=== PATIENT | female | born 1995 | race Caucasian/White ===

== ENCOUNTER 2018-05-27 20:43 | Observation (INO) | payer OTHER ==
[2018-05-27 21:07] LABS: BASOPHILS # (AUTO) 0.1 10^3/uL (0.0-0.1); BASOPHILS % (AUTO) 0.4 %; EOSINOPHILS % (AUTO) 0.1 %; HGB - HEMOGLOBIN 12.9 g/dL (12.0-16.0); LYMPHOCYTES # (AUTO) 1.6 10^3/uL (1.5-3.5); LYMPHOCYTES % (AUTO) 11.7 %; MEAN CORPUSCULAR HEMOGLOBIN 27.4 pg (27.0-31.0); MEAN CORPUSCULAR HGB CONC 32.8 g/dL (32.0-36.0); MEAN CORPUSCULAR VOLUME 83.6 fL (81.0-99.0); MEAN PLATELET VOLUME 7.6 fL (7.9-10.8); MONOCYTES % (AUTO) 7.4 %; NEUTROPHILS # (AUTO) 11.3 10^3/uL (1.5-6.6); NEUTROPHILS % (AUTO) 80.4 %; PLT - PLATELET COUNT 243 10^3/uL (130-450); RED CELL DISTRIBUTION WIDTH 13.9 % (12.0-15.0); WHITE BLOOD COUNT 14.1 x10^3/uL (4.8-10.8)
[2018-05-27 21:20] LABS: ALBUMIN 4.7 g/dL (3.2-5.5); ALBUMIN/GLOBULIN RATIO 1.3 (1.0-2.2); BILIRUBIN,TOTAL 0.4 mg/dL (0.2-1.0); CALCIUM 9.4 mg/dL (8.5-10.3); CREATININE 0.7 mg/dL (0.4-1.0); TOTAL PROTEIN 8.2 g/dL (6.7-8.2)
[2018-05-27] MEDS ORDERED: ONDANSETRON 4 MG/2 ML VIAL IVP STA (21:28)
[2018-05-27] MEDS ORDERED: SODIUM CHLORIDE 0.9% 1,000 ML IV ONE ×2 (21:28)
[2018-05-27] MEDS ORDERED: HYDROmorphone 1 MG/ML CARPUJECT IVP STA ×2 (21:28→22:53)
--- NOTE | 2018-05-27 21:41 | ED Physician Documentation ---
PD HPI ABD PAIN - Stated complaint Stated Complaint: L SIDE/BACK PX - Chief complaint Chief Complaint: Abd Pain - History obtained from History obtained from: Patient, Family - History of Present Illness Timing - onset: Today Timing - duration: Days (1) Timing - details: Abrupt onset Pain level max: 10 Pain level now: 10 Quality: Pain Location: All over / everywhere Radiation: No: Chest, , Lower back, Left flank, Left shoulder, Right flank, Right shoulder, Upper back Improved by: Laying still Worsened by: Moving, Palpation Associated symptoms: No: Fever, Nausea, Vomiting, Hematemesis, Diarrhea, Constipation, Melena, Hematochezia, Dysuria, Near syncope / syncope, Loss of appetite, Weight loss, Vaginal bleeding, Vaginal dc, Other Similar symptoms before: Diagnosis (r ovarian cyst) Recently seen: Other (SIMIN x 3 for abd pain in last month. Pt on nexplanon) Review of Systems Ten Systems: 10 systems reviewed and negative Constitutional: denies: Fever, Chills Nose: denies: Rhinorrhea / runny nose, Congestion Cardiac: denies: Chest pain / pressure Respiratory: denies: Dyspnea, Cough, Wheezing : denies: Dysuria Skin: denies: Rash Musculoskeletal: denies: Neck pain, Back pain Neurologic: denies: Headache PD PAST MEDICAL HISTORY - Past Medical History Past Medical History: No - Past Surgical History Past Surgical History: No - Allergies Allergies/Adverse Reactions: Allergies Allergy/AdvReac Type Severity Reaction Status Date / Time No Known Drug Allergies Allergy Verified 05/27/18 20:51 - Living Situation Living Situation: reports: With family Living Arrangement: reports: At home - Social History Does the pt smoke?: No Does the pt have substance abuse?: No - Family History Family history: reports: Non contributory PD ED PE NORMAL - Vitals Vital signs reviewed: Yes - General General: Alert and oriented X 3, Other (Appears in pain) - HEENT HEENT: PERRL, Moist mucous membranes - Neck Neck: Supple, no meningeal sign - Cardiac Cardiac: RRR - Respiratory Respiratory: Clear bilaterally - Abdomen Abdomen: Soft, Non distended, Other (Diffusely tender to palpation. Positive guarding and rebound) - Female Female : Other (Moderate thick white discharge, also a small 1 cm area to the cervix that is erythematous in nature, this is at the 12 o'clock position. Positive cervical motion tenderness. Positive right adnexal tenderness. Positive chandelier sign) - Back Back: No spinal TTP - Derm Derm: Warm and dry - Extremities Extremities: No edema, No calf tenderness / cord - Neuro Neuro: Alert and oriented X 3 - Psych Psych: Normal mood, Normal affect Results - Vitals Vitals: Vital Signs - 24 hr 05/27/18 05/27/18 05/27/18 20:47 21:49 22:46 Temperature 37.0 C 38.6 C H Heart Rate 87 100 109 H Respiratory 18 18 16 Rate Blood Pressure 127/80 115/77 108/79 O2 Saturation 97 96 100 05/27/18 05/28/18 05/28/18 23:46 01:04 01:11 Temperature 37.1 C Heart Rate 97 92 Respiratory 17 18 Rate Blood Pressure 112/60 114/75 O2 Saturation 100 98 Oxygen O2 Source Room air - Labs Labs: Microbiology 05/28/18 01:01 Wet Prep - Final Vaginal Laboratory Tests 05/27/18 05/27/18 05/27/18 21:01 21:01 22:47 WBC 14.1 H RBC 4.70 Hgb 12.9 Hct 39.3 MCV 83.6 MCH 27.4 MCHC 32.8 RDW 13.9 Plt Count 243 MPV 7.6 L Neut # (Auto) 11.3 H Lymph # (Auto) 1.6 [place] # (Auto) 1.0 Eos # (Auto) 0.0 Baso # (Auto) 0.1 Absolute Nucleated RBC 0.00 Nucleated RBC % 0.0 Sodium 139 Potassium 3.6 Chloride 105 Carbon Dioxide 25 Anion Gap 9.0 BUN 14 Creatinine 0.7 Estimated GFR (MDRD) 106 Glucose 97 Calcium 9.4 Total Bilirubin 0.4 AST 20 ALT 14 Alkaline Phosphatase 41 L Total Protein 8.2 Albumin 4.7 Globulin 3.5 Albumin/Globulin Ratio 1.3 Lipase 34 Urine Color YELLOW Urine Clarity CLEAR Urine pH 7.5 Ur Specific [place] 1.015 Urine Protein NEGATIVE Urine Glucose (UA) NEGATIVE Urine Ketones 15 H Urine Occult Blood NEGATIVE Urine Nitrite NEGATIVE Urine Bilirubin NEGATIVE Urine Urobilinogen 0.2 (NORMAL) Ur Leukocyte Esterase NEGATIVE Ur Microscopic Review NOT INDICATED Urine Culture Comments NOT INDICATED Urine HCG, Qual NEGATIVE - Rads (name of study) CT abd/pelvis Radiology: Prelim report reviewed, EMP read contemporaneously, See rad report (Normal abdomen pelvis CT.) Pelvic ultrasound Radiology: Prelim report reviewed, EMP read contemporaneously, See rad report (No acute abnormality) PD MEDICAL DECISION MAKING - ED course Complexity details: reviewed results, re-evaluated patient, considered differential, d/w patient, d/w family, d/w senior research consultant ED course: 23-year-old female presents to the emergency department with leukocytosis, fever, right pelvic pain now with right upper quadrant pain as well. Possible Binu-Dwight Esequiel syndrome? Likely PID. Given cefoxitin and doxycycline. Discussed the case with Dr. Huizar, gynecology who accepts for observation. Pain is difficult to control in the emergency department and she did receive several doses of IV narcotics. Patient states that she has had chlamydia in the past. Denies any symptoms currently This document was made in part using voice recognition software. While efforts are made to proofread this document, sound alike and grammatical errors may occur. Departure - Departure Disposition: ED Place in Observation Clinical Impression: PID (acute pelvic inflammatory disease), Ewyt-[id number]-Mxzmuv syndrome Condition: Stable
[2018-05-27] MEDS ORDERED: IOPAMIDOL-300 100 ML VIAL ONE (21:43)
[2018-05-27] MEDS ORDERED: IOPAMIDOL-300 100 ML VIAL IVP ONE (22:25)
[2018-05-27 22:52] LABS: BILIRUBIN,URINE NEGATIVE (NEGATIVE); GLUCOSE, URINE (UA) NEGATIVE (NEGATIVE); KETONES,URINE (UA) 15 mg/dL (NEGATIVE); LEUKOCYTE ESTERASE, URINE NEGATIVE (NEGATIVE); NITRITE,URINE NEGATIVE (NEGATIVE); OCCULT BLOOD,URINE NEGATIVE (NEGATIVE); PH,URINE 7.5 PH (5.0-7.5); PROTEIN,URINE NEGATIVE (NEGATIVE); UROBILINOGEN,URINE 0.2 (NORMAL) E.U./dL (NORMAL)
--- NOTE | 2018-05-27 22:56 | CT Report ---
Reason: RLQ pain, now diffuse Procedure Date: 05/27/2018 Accession Number: [id number] / [id number] Procedure: CT - Abdomen/Pelvis W CPT Code: FULL RESULT: EXAM: CT ABDOMEN AND PELVIS EXAM DATE: 05/27/2018 10:26 PM. CLINICAL HISTORY: Abdomen pain, initially right lower quadrant, now diffuse. COMPARISONS: None. TECHNIQUE: Routine helical CT imaging was performed through the abdomen and pelvis. IV contrast: 100 cc of Isovue-300. Enteric contrast: No. Reconstructions: Coronal and sagittal. In accordance with CT protocol optimization, one or more of the following dose reduction techniques were utilized for this exam: automated exposure control, adjustment of mA and/or KV based on patient size, or use of iterative reconstructive technique. FINDINGS: Lung Bases: Unremarkable. Liver: Normal. No masses. Gallbladder/Bile Ducts: Unremarkable. Spleen: Normal. Pancreas: Normal. Adrenal Glands: Normal. Kidneys: Normal. No masses or hydronephrosis. Peritoneal Cavity/Bowel: Normal. No free fluid, free air or adenopathy. No masses or acute inflammatory process. The appendix is well visualized and normal. Pelvic Organs: Normal. The bladder and visualized pelvic organs are within normal limits. Vasculature: No aneurysms or other significant abnormality. Bones: No significant abnormality. Other: None. IMPRESSION: Normal abdomen and pelvis CT. RADIA
[2018-05-27 22:58] LABS: CLARITY,URINE CLEAR (CLEAR); HCG UR QUAL NEGATIVE
[2018-05-27] MEDS ORDERED: ACETAMINOPHEN 325 MG TABLET PO STA (23:36)
[2018-05-28] MEDS ORDERED: KETOROLAC 30 MG/ML VIAL IVP STA (01:01)
[2018-05-28] MEDS ORDERED: cefOXitin 2 GM in SODIUM CHLORIDE 0.9% MINIBAG 100 ML IV STA (01:09)
[2018-05-28] MEDS ORDERED: DOXYCYCLINE 100 MG TABLET PO STA (01:09)
[2018-05-28] MEDS ORDERED: HYDROmorphone 1 MG/ML CARPUJECT IVP STA (01:14)
[2018-05-28] MEDS ORDERED: KETOROLAC 30 MG/ML VIAL IVP PRN (01:26)
[2018-05-28] MEDS ORDERED: oxyCODONE 5 MG TABLET PO PRN ×2 (01:37→07:22)
[2018-05-28] MEDS ORDERED: ceFAZolin 2 GM/50 ML 2 GM/50 ML BAG IV SCH (01:45)
[2018-05-28] MEDS ORDERED: cefOXitin 2 GM in SODIUM CHLORIDE 0.9% MINIBAG 100 ML IV SCH (02:00)
[2018-05-28] MEDS ORDERED: DOXYCYCLINE 100 MG TABLET PO SCH ×2 (02:00→13:00)
[2018-05-28] MEDS ORDERED: ACETAMINOPHEN 325 MG TABLET PO SCH (02:00)
[2018-05-28] MEDS ORDERED: SODIUM CHLORIDE 0.9% 1,000 ML IV SCH (02:00)
--- NOTE | 2018-05-28 02:05 | Ultrasound Report ---
Reason: pelvic pain, R Procedure Date: 05/27/2018 Accession Number: [id number] / [id number] Procedure: US - Pelvic w/Transvag+Doppler Comp CPT Code: FULL RESULT: EXAM: PELVIC ULTRASOUND EXAM DATE: 05/27/2018 11:59 PM. CLINICAL HISTORY: Pelvic pain, right. COMPARISON: ABDOMEN/PELVIS W/ 05/27/2018 10:14 PM. TECHNIQUE: Real-time transabdominal pelvic scan performed to identify the uterus and adnexa and as an overview of other pelvic structures, followed by transvaginal scan to provide greater detail of the uterus and adnexa, with static image documentation. FINDINGS: Uterus: 6.7 x 3.6 x 3.9 cm, volume 50.2 cc. Anteverted position. Normal overall size and echotexture. Masses: None. Endometrium: 4 mm. Normal. Cervix: Unremarkable. Right Ovary: 4.2 x 1.7 x 2.1 cm, volume 7.9 cc. Normal echotexture and blood flow. Left Ovary: 3.7 x 1.5 x 1.7 cm, volume 5.1 cc. Normal echotexture and blood flow. Free Fluid: None. Other: None. IMPRESSION: Normal pelvic ultrasound. RADIA
[2018-05-28] MEDS: MORPHINE 2 MG/ML SYRINGE IVP PRN ×3 (03:11→16:59)
[2018-05-28] MEDS: ONDANSETRON 4 MG/2 ML VIAL IVP PRN ×2 (07:46→16:59)
[2018-05-28] MEDS ORDERED: metroNIDAZOLE 500 MG/100 ML 500 MG/100 ML BAG IV SCH (08:00)
[2018-05-28] MEDS: KETOROLAC 30 MG/ML VIAL IVP SCH ×2 (08:04→12:27)
[2018-05-28] MEDS ORDERED: D5.45NS W/20 MEQ KCL 1,000 ML IV STA (08:31)
[2018-05-28] MEDS ORDERED: LACTATED RINGERS 500 ML IV ONE (08:32)
[2018-05-28] MEDS: cefOXitin 2 GM in SODIUM CHLORIDE 0.9% MINIBAG 100 ML IV SCH ×2 (09:20→15:06)
--- NOTE | 2018-05-28 10:15 | HISTORY & PHYSICAL EXAMINATION ---
DATE OF SERVICE: 05/28/2018 Physician: Suma Huizar MD CHIEF COMPLAINT: Left abdominal pain. HISTORY OF PRESENT ILLNESS: Patient felt a little bit weird yesterday, just felt like she did not fe el great. She had gone on a [address] and she wondered if it was related to that. She had had so me intermittent mild background left lower quadrant pain for which she sought care at [facility]. They deemed this to be secondary to a hormone imbalance. They tried control pills for a week a nd this caused breast pain and galactorrhea, and so the medications were stopped [address] was that she was going to have her Nexplanon removed today to see if that would improve her sympto ms. This evening, she had laid her son down to bed, stood up and then felt a sudden severe shooting pain in the left lower quadrant that was 8/10 in intensity with a very abrupt onset. She had to breathe t hrough the pain like a contraction. The pain persisted. It did not improve with time. The pain spr ead to the right lower quadrant and then up to the right upper quadrant. It has been associated with a feeling of dizziness and nausea. Nothing seems to make it better except for IV narcotics in the e mergency room. She has never had pain like this before. REVIEW OF SYSTEMS: The patient felt feverish and chilled in the ER, but not prior to arrival to the hospital. No cough, no wheeze. No shortness of breath. No dysuria. No change in bowel movements. No headaches. The patient has experienced intermittent galactorrhea. PAST MEDICAL HISTORY: Hypoglycemia and migraine headaches without aura. PAST SURGICAL HISTORY: Negative. ALLERGIES: NO KNOWN DRUG ALLERGIES. MEDICATIONS: None. SOCIAL HISTORY: No tobacco, alcohol or drug use. 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 She lives wi th her child and her at home. FAMILY HISTORY: Remarkable for Goodpasture syndrome in her mother. OBSTETRICAL HISTORY: The patient delivered about 20 months ago. It was an uncomplicated a nd delivery. She has weaned for quite some time and has had bouts of galactorrhea since then. OBJECTIVE VITAL SIGNS: In the ER, temperature 38.6, heart rate 109, respiratory rate 16, blood pressure 108/79 . GENERAL: She is currently alert and appears to be uncomfortable with nausea. Otherwise, she is in n o apparent distress. ABDOMEN: Very tender in the bilateral lower quadrants. There is moderate tenderness in the upper qu adrants. There is no rebound present in the upper quadrants. There is no voluntary guarding present . There is no abdominal rigidity present. LABORATORY DATA: White count was 14.1 with a left shift present hematocrit 39.3. CMP was normal. U A was negative. HCG negative. STUDIES: CT of the abdomen and pelvis was normal. Pelvic ultrasound was normal as well. IMPRESSION AND PLAN: A 23-year-old with an acute onset of severe left lower quadrant pain, who has p elvic inflammatory disease. On her examination, she was found to have a significant amount of mucopu rulent discharge from the cervix as well as cervical motion tenderness. The abrupt onset of her pain is uncommon and the differential would include acute hemorrhagic ovarian cyst, but none of this was seen on the ultrasound. Nephrolithiasis is also a possibility, but her UA was normal and the locatio n of her pain is not consistent with this. Admit for pain control as well as for IV antibiotics with a severe case of pelvic inflammatory diseas e without evidence of tubo-ovarian abscess. In the ER, she got 2 grams of cefoxitin and 100 mg of do xycycline. Today, she is feeling better with a pain level of 4/10, but she has been receiving IV zackary cotics. We will treat her current nausea with Zofran and attempt to transition her to oral antibioti cs and pain medicines today. If this is not possible, then she will stay inpatient for a little bit longer. Continue cefoxitin 2 grams IV q.6 hours, doxycycline 100 mg b.i.d. We will add metronidazol e 500 mg IV q.8 hours due to the severity of her pelvic inflammatory disease. Gonorrhea and chlamydi a cultures are pending. The patient was concerned that she might have Goodpasture syndrome like her mother did. I have reassured her that her kidneys look normal and she has no pulmonary symptoms and so Goodpasture's is very unlikely in this setting. Symptomatic hypoglycemia: The patient feels the same way she feels whenever she becomes hypoglycemic . We will change her IV fluids to D5 LR and will bolus her with normal saline now. The patient was advised to drink juice instead of eating Jell-O as it might help to maintain her blood sugars better. TD: 05/28/2018 09:13
[2018-05-28] MEDS ORDERED: DOXYCYCLINE INJ 100 MG in SODIUM CHLORIDE 0.9% MINIBAG 100 ML IV SCH (13:20)
--- NOTE | 2018-05-28 13:22 | PROVIDER PROGRESS NOTE ---
Subjective - Subjective Subjective: S: feeling better overall. Less nausea and no further emesis. Able to tolerate some juice and one cracker. Able to get OOB to a bedside chair. Urinating OK. Pain is less than before. O: AVSS, no fevers Alert, smiling, supine in bed, NAD A/P: 23yo with PID without evidence of TOA, admitted for pain control. Doing well on IV meds, will transition to po meds in hopes of discharge later today. 1) stop toradol and start ibuprofen 2) stop IV doxy and metronidazole and start po 3) continue cefoxitine IV until discharge 4) Leave morpine for breakthrough pain but encouraged use of po narcotics instead. 5) Change to regular diet with unlikely to need to go to the OR 6) saline lock IVs About 15min after I departed, the patient complained of 7/10 intensity chest pa in while the doxycycline IV was still infusing. The doxy infusion was stopped. Pt appears in no distress to RN. EKG ordered. Pt is a young, thin, healthy woman with negative PMH. I checked out care to Dr. Tejeda director of undergraduate admissions [employer] for ongoing mgmt. Objective - Vital Signs/Intake & Output Vital Signs: Vital Signs x48h Temp Pulse Resp BP BP Pulse Ox 05/28/18 11:00 97.7 F 62 16 91/59 L 99 05/28/18 09:00 98.4 F 72 18 102/52 L 99 05/28/18 06:59 97.7 F 77 16 98/59 L 97 Intake & Output: Intake & Output 05/25/18 05/26/18 05/27/18 05/28/18 23:59 23:59 23:59 23:59 Intake Total 1000 2790 Output Total 250 Balance 1000 2540 - Lab Results Fish Bones: 05/27/18 21:01 05/27/18 21:01 Other Labs: Lab Results x24hrs 05/28/18 05/27/18 05/27/18 Range/Units 06:16 22:47 21:01 WBC (4.8-10.8) x10^3/uL RBC (4.20-5.40) 10^6/uL Hgb (12.0-16.0) g/dL Hct (37.0-47.0) % MCV (81.0-99.0) fL MCH (27.0-31.0) pg MCHC (32.0-36.0) g/dL RDW (12.0-15.0) % Plt Count (130-450) 10^3/uL MPV (7.9-10.8) fL Neut # (Auto) (1.5-6.6) 10^3/uL Lymph # (Auto) (1.5-3.5) 10^3/uL [place] # (Auto) (0.0-1.0) 10^3/uL Eos # (Auto) (0.0-0.7) 10^3/uL Baso # (Auto) (0.0-0.1) 10^3/uL Absolute Nucleated RBC x10^3/uL Nucleated RBC % /100WBC Sodium 139 (135-145) mmol/L Potassium 3.6 (3.5-5.0) mmol/L Chloride 105 (101-111) mmol/L Carbon Dioxide 25 (21-32) mmol/L Anion Gap 9.0 (6-13) BUN 14 (6-20) mg/dL Creatinine 0.7 (0.4-1.0) mg/dL Estimated GFR (MDRD) 106 (>89) Glucose 97 (70-100) mg/dL POC Whole Bld Glucose 108 H (70 - 100) mg/dL Calcium 9.4 (8.5-10.3) mg/dL Total Bilirubin 0.4 (0.2-1.0) mg/dL AST 20 (10-42) IU/L ALT 14 (10-60) IU/L Alkaline Phosphatase 41 L (42-121) IU/L Total Protein 8.2 (6.7-8.2) g/dL Albumin 4.7 (3.2-5.5) g/dL Globulin 3.5 (2.1-4.2) g/dL Albumin/Globulin Ratio 1.3 (1.0-2.2) Lipase 34 (22-51) U/L Urine Color YELLOW Urine Clarity CLEAR (CLEAR) Urine pH 7.5 (5.0-7.5) PH Ur Specific [place] 1.015 (1.002-1.030) Urine Protein NEGATIVE (NEGATIVE) mg/dL Urine Glucose (UA) NEGATIVE (NEGATIVE) mg/dL Urine Ketones 15 H (NEGATIVE) mg/dL Urine Occult Blood NEGATIVE (NEGATIVE) Urine Nitrite NEGATIVE (NEGATIVE) Urine Bilirubin NEGATIVE (NEGATIVE) Urine Urobilinogen 0.2 (NORMAL) (NORMAL) E.U./dL Ur Leukocyte Esterase NEGATIVE (NEGATIVE) Ur Microscopic Review NOT INDICATED Urine Culture Comments NOT INDICATED Urine HCG, Qual NEGATIVE 05/27/18 Range/Units 21:01 WBC 14.1 H (4.8-10.8) x10^3/uL RBC 4.70 (4.20-5.40) 10^6/uL Hgb 12.9 (12.0-16.0) g/dL Hct 39.3 (37.0-47.0) % MCV 83.6 (81.0-99.0) fL MCH 27.4 (27.0-31.0) pg MCHC 32.8 (32.0-36.0) g/dL RDW 13.9 (12.0-15.0) % Plt Count 243 (130-450) 10^3/uL MPV 7.6 L (7.9-10.8) fL Neut # (Auto) 11.3 H (1.5-6.6) 10^3/uL Lymph # (Auto) 1.6 (1.5-3.5) 10^3/uL [place] # (Auto) 1.0 (0.0-1.0) 10^3/uL Eos # (Auto) 0.0 (0.0-0.7) 10^3/uL Baso # (Auto) 0.1 (0.0-0.1) 10^3/uL Absolute Nucleated RBC 0.00 x10^3/uL Nucleated RBC % 0.0 /100WBC Sodium (135-145) mmol/L Potassium (3.5-5.0) mmol/L Chloride (101-111) mmol/L Carbon Dioxide (21-32) mmol/L Anion Gap (6-13) BUN (6-20) mg/dL Creatinine (0.4-1.0) mg/dL Estimated GFR (MDRD) (>89) Glucose (70-100) mg/dL POC Whole Bld Glucose (70 - 100) mg/dL Calcium (8.5-10.3) mg/dL Total Bilirubin (0.2-1.0) mg/dL AST (10-42) IU/L ALT (10-60) IU/L Alkaline Phosphatase (42-121) IU/L Total Protein (6.7-8.2) g/dL Albumin (3.2-5.5) g/dL Globulin (2.1-4.2) g/dL Albumin/Globulin Ratio (1.0-2.2) Lipase (22-51) U/L Urine Color Urine Clarity (CLEAR) Urine pH (5.0-7.5) PH Ur Specific [place] (1.002-1.030) Urine Protein (NEGATIVE) mg/dL Urine Glucose (UA) (NEGATIVE) mg/dL Urine Ketones (NEGATIVE) mg/dL Urine Occult Blood (NEGATIVE) Urine Nitrite (NEGATIVE) Urine Bilirubin (NEGATIVE) Urine Urobilinogen (NORMAL) E.U./dL Ur Leukocyte Esterase (NEGATIVE) Ur Microscopic Review Urine Culture Comments Urine HCG, Qual
[2018-05-28] MEDS ORDERED: AZITHROMYCIN INJ 500 MG in SODIUM CHLORIDE 0.9% 250 ML IV STA (14:40)
[2018-05-28] MEDS ORDERED: SODIUM CHLORIDE FLUSH 0.9% 10 ML SYRINGE ONE ×2 (15:00→17:19)
--- NOTE | 2018-05-28 15:20 | Discharge Plan ---
Discharge Plan Disposition: Home, Self Care Condition: Stable Diet: Regular Activity Restrictions: Activity as Tolerated Shower Restrictions: No Driving Restrictions: No (As tolerated) Weight Bearing: Full Weight Additional Instructions or Follow Up instructions: No sex x 2 weeks No strenuous physical activity for next 4 days. Follow up in [facility] on Friday06/01/18 Return to hospital for fever, severe abdominal or pelvic pain No Smoking: If you smoke, Please STOP! Call for help.
--- NOTE | 2018-05-28 15:31 | DISCHARGE SUMMARY ---
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 female placed in observation status early this AM by Dr. Huizar given dx of PID (pelvic pain, purulent cervical discharge, temp, mildly elevated WBC) and severe pain. Patient placed in observation status for initial IV ABX and pain control. Patient with BL lower quadrant pain, single mildly elvated temp and WBC 14K. HCG negative. BMP and UA negative, CT of abdomen and pelvis as well as pelvic US all unremarkable. Patient started on IV cefoxitin 2GM g6h and IV doxycycline 100 mg bid. Patient also getting zofran for nausea. Patient and in stable and monogomous relationship. GC/CT done on admission is pending. PMH: Neg PSH: Neg ROS negative except for HPI of pelvic pain and nausea. - CONSULTS | PROCEDURES Procedures: CT ABDOMEN AND PELVIS PELVIC ULTRASOUND IV ANTIBIOTIC THERAPY - HOSPITAL COURSE Hospital Course: The patient was started on IV cefoxitin and doxycycline. She started having arm pain immediately after IV doxy infusion began, that radiated to her chest. The IV ABX were immediately stopped, patient had normal VS throughout, no SOB and saturating 100 % on RA. EKG NSR. Lungs clear. Heart RRR. Pain in arm and chest dissipated after IV doxy stopped. Nausea sx improved with IV zofran as well. Patient states that her pelvic pain now is 2/10 compared to 10/10 at time of placement in observation status. She received her second dose of cefoxitin IV prior to discharge as well as a single 500 mg IV dose of Zithromax instead of doxycycline. She is going home on zithromax 250 mg p.o. daily x 13 days to finish 14 day course and flagyl 500 mg p.o. bid x 14 days as well. - ALLERGIES Allergies/Adverse Reactions: Allergies Allergy/AdvReac Type Severity Reaction Status Date / Time No Known Drug Allergies Allergy Verified 05/27/18 20:51 - MEDICATIONS Home Medications: Ambulatory Orders Medication Instructions Recorded Confirmed No Known Home Medications 05/28/18 05/28/18 Home Medications Other | Comments: Percocet 5/325: #4: 1/2 p.o. q6h prn pain Phenergan 25 mg tab: #6: 1/2 tab p.o. q6h prn n/v Zithromax 250 mg #13: one p.o. daily x 13 days to finish 14 day course Flagyl 500 mg: #28: one p.o. bid x 14 days Motrin (at home): 800 mg p.o. q8h WF prn pain - PHYSICAL EXAM AT DISCHARGE General Appearance: positive: No acute distress, Alert Neck: positive: Nml inspection Respiratory: positive: Chest non-tender, No respiratory distress, Breath sounds nml Cardiovascular: positive: Regular rate & rhythm, No murmur Peripheral Pulses: positive: 2+ Abdomen: positive: Other (normal RUQ and LUQ, mild BL LQ pain with palpation consistent with resolving PID) Back: positive: Nml inspection Skin: positive: Color nml, No rash Extremities: positive: Non-tender, Full ROM Neurologic/Psychiatric: positive: Oriented x3, CN's nml (2-12) - LABS Result Diagrams: 05/27/18 21:01 05/27/18 21:01 - DIAGNOSTIC IMAGING Diagnostic Imaging Results: See rad report Diagnostic Imaging Results Comments: CT ABD/PELVIS as well as pelvic US both unremarkable. 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 She will follow up at [facility] primary care clinic for evaluation and further disposition. Also given precautions to return to hospital for fever or worsening pelvic pain. - TIME SPENT Time Spent in Discharge (Minutes): 45"
[2018-05-28] MEDS ORDERED: metroNIDAZOLE 250 MG TABLET PO SCH (17:00)
[2018-05-28 17:26] VITALS: BP 95/54
[2018-05-28] MEDS ORDERED: NAPROXEN 250 MG TABLET PO PRN (20:00)
== END 2018-05-28 17:52 | disposition home or self-care (01) ==
LOC: ED 20:43 → OBS 05-28 01:25
PROVIDERS: ADMIT Obstetrics & Gynecology; ATTEND Obstetrics & Gynecology
DX: N73.9 Female pelvic inflammatory disease, unspecified (principal); I95.9 Hypotension, unspecified
CPT/HCPCS: 36415; 74177; 76830; 76856; 80053; 81003; 81025; 83690; 85025; 87210; 87491; 87591; 93005; 93975; 96361; 96365; 96366; 96367; 96375; 96376; 99284; A9270; G0378; J1170; J2270; Q9967; 81001; 87086; 99285

== ENCOUNTER 2018-08-20 09:02 | Emergency (ER) | payer OTHER ==
--- NOTE | 2018-08-20 10:25 | ED Physician Documentation ---
PD HPI SYNCOPE - Stated complaint Stated Complaint: NEAR SYNCOPE - Chief complaint Chief Complaint: General - History obtained from History obtained from: Patient - History of Present Illness Witnessed: Witnessed Timing - onset: How many minutes ago (les than one) Duration: Minutes (less than one) Preceding symptoms: Light headed, Generalized weakness Contributing factors: Decreased PO intake (she states she had not gotten breakfast yet. history of hypoglycemia in the past. When she awoke, she says she had some lower abd cramping pain. Had been having some cyst ovarian pain the past week, and had U/S yesterday showing several cysts, with one appearing hemorrhagic but no free fluid. Negative preg test yesterday as well.), Just stood up Review of Systems Constitutional: denies: Fever, Chills Nose: denies: Rhinorrhea / runny nose, Congestion Throat: denies: Sore throat Respiratory: denies: Cough GI: reports: Abdominal Pain (intermittent cramping the past week. Increased after the fainting episode.). 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 - Past Surgical History Past Surgical History: No - Present Medications Home Medications: Ambulatory Orders Medication Instructions Recorded Confirmed No Known Home Medications 05/28/18 05/28/18 - Allergies Allergies/Adverse Reactions: Allergies Allergy/AdvReac Type Severity Reaction Status Date / Time No Known Drug Allergies Allergy Verified 08/20/18 09:09 - Social History Does the pt smoke?: No Smoking Status: Never smoker Does the pt drink ETOH?: No Does the pt have substance abuse?: No - Immunizations Immunizations are current?: Yes - POLST Patient has POLST: No PD ED PE NORMAL - Vitals Vital signs reviewed: Yes - General General: Alert and oriented X 3, No acute distress, Well developed/nourished - HEENT HEENT: Atraumatic, Moist mucous membranes - Neck Neck: Supple, no meningeal sign, No adenopathy - Cardiac Cardiac: RRR, No murmur - Respiratory Respiratory: Clear bilaterally - Abdomen Abdomen: Normal bowel sounds, Soft, Non distended, No organomegaly, Other (mild tenderness lower abd right more than left; bedside U/S showed no pelvic free fluid. ) - Derm Derm: Normal color, Warm and dry - Extremities Extremities: No tenderness to palpate, Normal ROM s pain, No edema, No calf t enderness / cord - Neuro Neuro: Alert and oriented X 3, No motor deficit, Normal speech Eye Opening: Spontaneous Motor: Obeys Commands Verbal: Oriented GCS Score: 15 - Psych Psych: Normal mood, Normal affect Results - Vitals Vitals: Vital Signs - 24 hr 08/20/18 08/20/18 09:05 11:15 Temperature 36.4 C L 36.6 C Heart Rate 68 68 Respiratory 12 16 Rate Blood Pressure 114/78 100/69 O2 Saturation 100 98 Oxygen O2 Source Room air - Labs Labs: Laboratory Tests 08/20/18 08/20/18 08/20/18 10:08 10:20 10:20 WBC 6.8 RBC 4.43 Hgb 12.4 Hct 36.9 L MCV 83.3 MCH 27.9 MCHC 33.5 RDW 13.6 Plt Count 212 MPV 7.7 L Neut # (Auto) 4.1 Lymph # (Auto) 2.1 [place] # (Auto) 0.5 Eos # (Auto) 0.1 Baso # (Auto) 0.0 Absolute Nucleated RBC 0.00 Nucleated RBC % 0.0 Sodium 141 Potassium 3.7 Chloride 107 Carbon Dioxide 23 Anion Gap 11.0 BUN 16 Creatinine 0.6 Estimated GFR (MDRD) 126 Glucose 92 Calcium 8.8 Total Bilirubin 0.7 AST 18 ALT 18 Alkaline Phosphatase 35 L Total Protein 7.3 Albumin 4.0 Globulin 3.3 Albumin/Globulin Ratio 1.2 Lipase 38 Urine Color YELLOW Urine Clarity CLEAR Urine pH 7.0 Ur Specific [place] <=1.005 Urine Protein NEGATIVE Urine Glucose (UA) NEGATIVE Urine Ketones NEGATIVE Urine Occult Blood NEGATIVE Urine Nitrite NEGATIVE Urine Bilirubin NEGATIVE Urine Urobilinogen 0.2 (NORMAL) Ur Leukocyte Esterase NEGATIVE Ur Microscopic Review NOT INDICATED Urine Culture Comments NOT INDICATED Urine HCG, Qual NEGATIVE Departure - Departure Disposition: Home, Self Care Clinical Impression: Episode of syncope Qualifiers: Syncope type: unspecified Qualified Code(s): R55 - Syncope and collapse Condition: Stable Record reviewed to determine appropriate education?: Yes Instructions: ED Fainting Unkn Cause Follow-Up: [facility] [place] [Provider Group] Comments: Stay well-hydrated. Eat regularly. Rest today. Follow-up with your primary care in the next few days. Forms: Activity restrictions Discharge Date/Time: 08/20/18 11:22
[2018-08-20 10:30] LABS: BASOPHILS % (AUTO) 0.5 %; EOSINOPHILS # (AUTO) 0.1 10^3/uL (0.0-0.7); HGB - HEMOGLOBIN 12.4 g/dL (12.0-16.0); LYMPHOCYTES # (AUTO) 2.1 10^3/uL (1.5-3.5); LYMPHOCYTES % (AUTO) 31.3 %; MEAN CORPUSCULAR HEMOGLOBIN 27.9 pg (27.0-31.0); MEAN CORPUSCULAR HGB CONC 33.5 g/dL (32.0-36.0); MEAN CORPUSCULAR VOLUME 83.3 fL (81.0-99.0); MEAN PLATELET VOLUME 7.7 fL (7.9-10.8); MONOCYTES # (AUTO) 0.5 10^3/uL (0.0-1.0); MONOCYTES % (AUTO) 7.7 %; NEUTROPHILS # (AUTO) 4.1 10^3/uL (1.5-6.6); NEUTROPHILS % (AUTO) 59.5 %; PLT - PLATELET COUNT 212 10^3/uL (130-450); RED BLOOD COUNT 4.43 10^6/uL (4.20-5.40); RED CELL DISTRIBUTION WIDTH 13.6 % (12.0-15.0); WHITE BLOOD COUNT 6.8 x10^3/uL (4.8-10.8)
[2018-08-20 10:37] LABS: BILIRUBIN,URINE NEGATIVE (NEGATIVE); GLUCOSE, URINE (UA) NEGATIVE (NEGATIVE); KETONES,URINE (UA) NEGATIVE (NEGATIVE); LEUKOCYTE ESTERASE, URINE NEGATIVE (NEGATIVE); NITRITE,URINE NEGATIVE (NEGATIVE); OCCULT BLOOD,URINE NEGATIVE (NEGATIVE); PROTEIN,URINE NEGATIVE (NEGATIVE); UROBILINOGEN,URINE 0.2 (NORMAL) E.U./dL (NORMAL)
[2018-08-20 10:39] LABS: CLARITY,URINE CLEAR (CLEAR)
[2018-08-20 10:40] LABS: HCG UR QUAL NEGATIVE
[2018-08-20 10:44] LABS: ALBUMIN/GLOBULIN RATIO 1.2 (1.0-2.2); BILIRUBIN,TOTAL 0.7 mg/dL (0.2-1.0); CALCIUM 8.8 mg/dL (8.5-10.3); CREATININE 0.6 mg/dL (0.4-1.0); TOTAL PROTEIN 7.3 g/dL (6.7-8.2)
[2018-08-20 11:15] VITALS: BP 100/69
== END 2018-08-20 11:22 | disposition home or self-care (01) ==
LOC: EDUNIT# → ED 09:02
DX: R55 Syncope and collapse (principal); R53.1 Weakness; N83.209 Unspecified ovarian cyst, unspecified side
CPT/HCPCS: 36415; 80053; 81001; 81003; 81025; 83690; 85025; 87086; 99283

== ENCOUNTER 2019-11-29 12:25 | Emergency (ER) | payer OTHER ==
[2019-11-29 12:58] LABS: BASOPHILS # (AUTO) 0.1 10^3/uL (0.0-0.1); BASOPHILS % (AUTO) 0.4 %; EOSINOPHILS # (AUTO) 0.1 10^3/uL (0.0-0.7); EOSINOPHILS % (AUTO) 0.5 %; HGB - HEMOGLOBIN 13.2 g/dL (12.0-16.0); LYMPHOCYTES # (AUTO) 1.6 10^3/uL (1.5-3.5); LYMPHOCYTES % (AUTO) 9.2 %; MEAN CORPUSCULAR HEMOGLOBIN 29.1 pg (27.0-31.0); MEAN CORPUSCULAR HGB CONC 33.8 g/dL (32.0-36.0); MEAN CORPUSCULAR VOLUME 86.3 fL (81.0-99.0); MEAN PLATELET VOLUME 9.5 fL (7.9-10.8); MONOCYTES % (AUTO) 6.2 %; NEUTROPHILS # (AUTO) 14.1 10^3/uL (1.5-6.6); NEUTROPHILS % (AUTO) 83.2 %; PLT - PLATELET COUNT 236 10^3/uL (130-450); RED BLOOD COUNT 4.53 10^6/uL (4.20-5.40); RED CELL DISTRIBUTION WIDTH 12.8 % (12.0-15.0); WHITE BLOOD COUNT 16.9 x10^3/uL (4.8-10.8)
[2019-11-29 13:11] LABS: ALBUMIN 4.4 g/dL (3.2-5.5); ALBUMIN/GLOBULIN RATIO 1.3 (1.0-2.2); BILIRUBIN,TOTAL 0.8 mg/dL (0.2-1.0); CALCIUM 9.1 mg/dL (8.5-10.3); CREATININE 0.6 mg/dL (0.4-1.0); TOTAL PROTEIN 7.7 g/dL (6.7-8.2)
[2019-11-29 13:32] LABS: BILIRUBIN,URINE NEGATIVE (NEGATIVE); GLUCOSE, URINE (UA) NEGATIVE (NEGATIVE); KETONES,URINE (UA) NEGATIVE (NEGATIVE); LEUKOCYTE ESTERASE, URINE NEGATIVE (NEGATIVE); NITRITE,URINE NEGATIVE (NEGATIVE); OCCULT BLOOD,URINE NEGATIVE (NEGATIVE); PROTEIN,URINE NEGATIVE (NEGATIVE); UROBILINOGEN,URINE 0.2 (NORMAL) E.U./dL (NORMAL)
[2019-11-29 13:33] LABS: CLARITY,URINE CLEAR (CLEAR)
[2019-11-29] MEDS ORDERED: ONDANSETRON ODT 4 MG TABLET TL STA (13:33)
--- NOTE | 2019-11-29 13:36 | ED Physician Documentation ---
History of Present Illness - Stated complaint Stated Complaint: LOW BLOOD SUGAR - Chief complaint Chief Complaint: General - History obtained from History obtained from: Patient - Additonal information Additional information: 24 yo F w/ pmh of hypoglycemia presents after feeling hypoglycemic at home. Pt states she felt weak and tremulous. Checked sugars at home which ranged from 51- 90. Didn't attempt any glucose tabs, snacks, or other PO other than water. Last food intake was yesterday around 8pm. States she has difficulty with appetite and nausea at times, takes occasional phenergan or zofran to help w/ nausea but hasn't taken any today or yesterday. [place] well up until this AM. Denies fever, chills, cough or URI sx, cp, dyspnea, abd pain, vomiting, diarrhea, dysuria or urinary sx. LMP 12/01, due in a few days, not on control. On Cymbalta, prn phenergan rectal which she does not take, and prn meclizine. Long-standing hx/o periodic hypoglycemia for which she has been told in the past to just eat a snack. Review of Systems Constitutional: reports: Reviewed and negative Eyes: reports: Reviewed and negative Ears: reports: Reviewed and negative Nose: reports: Reviewed and negative Cardiac: reports: Reviewed and negative Respiratory: reports: Reviewed and negative GI: reports: Nausea. denies: Abdominal Pain, Abdominal Swelling, Constipation, Diarrhea : reports: LMP (10/31-11/05). denies: Dysuria, Frequency, Vaginal bleeding, Missed period, Control Skin: reports: Reviewed and negative Musculoskeletal: reports: Reviewed and negative Neurologic: reports: Generalized weakness. 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 - Past Surgical History Past Surgical History: No - Present Medications Home Medications: Ambulatory Orders Medication Instructions Recorded Confirmed Ondansetron Odt [Zofran] 4 mg TL Q6H PRN #10 tablet 11/29/19 - Allergies Allergies/Adverse Reactions: Allergies Allergy/AdvReac Type Severity Reaction Status Date / Time No Known Drug Allergies Allergy Verified 11/29/19 12:35 - Social History Does the pt smoke?: No Smoking Status: Never smoker Does the pt drink ETOH?: No Does the pt have substance abuse?: No - Immunizations Immunizations are current?: Yes - POLST Patient has POLST: No PD ED PE NORMAL - Vitals Vital signs reviewed: Yes - General General: Alert and oriented X 3, No acute distress, Well developed/nourished - HEENT HEENT: Atraumatic, PERRL, EOMI - Neck Neck: Supple, no meningeal sign - Cardiac Cardiac: RRR, No murmur - Respiratory Respiratory: No respiratory distress, Clear bilaterally - Abdomen Abdomen: Normal bowel sounds, Non tender, Non distended - Derm Derm: Warm and dry, No rash - Neuro Neuro: Alert and oriented X 3 Eye Opening: Spontaneous Motor: Obeys Commands Verbal: Oriented GCS Score: 15 - Psych Psych: Normal mood, Normal affect Results - Vitals Vitals: Vital Signs - 24 hr 11/29/19 11/29/19 12:35 14:35 Temperature 36.7 C 36.8 C Heart Rate 92 102 H Respiratory 16 16 Rate Blood Pressure 104/65 107/67 O2 Saturation 97 98 Oxygen O2 Source Room air - Labs Labs: Laboratory Tests 11/29/19 11/29/19 11/29/19 12:55 12:55 12:55 WBC 16.9 H RBC 4.53 Hgb 13.2 Hct 39.1 MCV 86.3 MCH 29.1 MCHC 33.8 RDW 12.8 Plt Count 236 MPV 9.5 Neut # (Auto) 14.1 H Lymph # (Auto) 1.6 [place] # (Auto) 1.0 Eos # (Auto) 0.1 Baso # (Auto) 0.1 Absolute Nucleated RBC 0.00 Nucleated RBC % 0.0 Sodium 136 Potassium 3.6 Chloride 101 Carbon Dioxide 25 Anion Gap 10.0 BUN 12 Creatinine 0.6 Estimated GFR (MDRD) 125 Glucose 105 H POC Whole Bld Glucose Calcium 9.1 Total Bilirubin 0.8 AST 19 ALT 22 Alkaline Phosphatase 38 L Total Protein 7.7 Albumin 4.4 Globulin 3.3 Albumin/Globulin Ratio 1.3 Lipase 31 TSH 2.24 Serum HCG, Qual Urine Color Urine Clarity Urine pH Ur Specific [place] Urine Protein Urine Glucose (UA) Urine Ketones Urine Occult Blood Urine Nitrite Urine Bilirubin Urine Urobilinogen Ur Leukocyte Esterase Ur Microscopic Review Urine Culture Comments 11/29/19 11/29/19 11/29/19 12:55 13:24 14:32 WBC RBC Hgb Hct MCV MCH MCHC RDW Plt Count MPV Neut # (Auto) Lymph # (Auto) [place] # (Auto) Eos # (Auto) Baso # (Auto) Absolute Nucleated RBC Nucleated RBC % Sodium Potassium Chloride Carbon Dioxide Anion Gap BUN Creatinine Estimated GFR (MDRD) Glucose POC Whole Bld Glucose 108 H Calcium Total Bilirubin AST ALT Alkaline Phosphatase Total Protein Albumin Globulin Albumin/Globulin Ratio Lipase TSH Serum HCG, Qual NEGATIVE Urine Color YELLOW Urine Clarity CLEAR Urine pH 6.0 Ur Specific [place] >=1.030 H Urine Protein NEGATIVE Urine Glucose (UA) NEGATIVE Urine Ketones NEGATIVE Urine Occult Blood NEGATIVE Urine Nitrite NEGATIVE Urine Bilirubin NEGATIVE Urine Urobilinogen 0.2 (NORMAL) Ur Leukocyte Esterase NEGATIVE Ur Microscopic Review NOT INDICATED Urine Culture Comments NOT INDICATED PD MEDICAL DECISION MAKING - ED course Complexity details: reviewed old records, reviewed results, re-evaluated patient, considered differential ED course: 24 yo F presented with symptomatic hypoglycemia this AM. Pt has long-standing history of same. She felt better after receiving zofran here in the ED and was able to tolerate apple juice and crackers. Her glucose here was 105 and 108. She not longer feels jittery. Advised pt to try to avoid skipping meals and eat regularly to avoid hypoglycemia. She was given a short-term script of zofran to help w/ nausea that sometimes prevents her from eating regularly. Pt to follow up with her primary doctor within the week. She will return to the ER if she has new or worsening symptoms. Departure - Departure Disposition: 01 Home, Self Care Clinical Impression: Generalized muscle ache, Hypoglycemia Condition: Good Instructions: ED Blood Sugar Low Non Diabetic Prescriptions: Ondansetron Odt [Zofran] 4 mg TL Q6H PRN #10 tablet PRN Reason: Nausea / Vomiting Comments: Please try to eat regularly, avoid skipping meals, and keep small and easily digestible snacks on hand. Please follow up with your primary doctor within 1 week to review your hypoglycemia. You may take zofran sublingual as needed for nausea. Return to the ER if you have new or worsening symptoms.
[2019-11-29 14:13] LABS: HCG,QUALITATIVE BLOOD NEGATIVE
[2019-11-29 14:37] VITALS: BP 107/67
== END 2019-11-29 15:02 | disposition home or self-care (01) ==
LOC: ED 12:25
DX: E16.2 Hypoglycemia, unspecified (principal); R11.0 Nausea; M79.18 Myalgia, other site; R53.1 Weakness
CPT/HCPCS: 36415; 81003; 83690; 84703; 99283; 99284; Q0162; 80053; 81001; 84443; 85025; 87086

== ENCOUNTER 2020-01-10 15:06 | Emergency (ER) | payer OTHER ==
[2020-01-10 15:54] LABS: BASOPHILS % (AUTO) 0.5 %; EOSINOPHILS # (AUTO) 0.2 10^3/uL (0.0-0.7); EOSINOPHILS % (AUTO) 2.1 %; HGB - HEMOGLOBIN 12.6 g/dL (12.0-16.0); LYMPHOCYTES % (AUTO) 39.7 %; MEAN CORPUSCULAR HEMOGLOBIN 29.2 pg (27.0-31.0); MEAN CORPUSCULAR HGB CONC 33.9 g/dL (32.0-36.0); MEAN CORPUSCULAR VOLUME 86.1 fL (81.0-99.0); MEAN PLATELET VOLUME 9.7 fL (7.9-10.8); MONOCYTES # (AUTO) 0.6 10^3/uL (0.0-1.0); MONOCYTES % (AUTO) 8.4 %; NEUTROPHILS # (AUTO) 3.7 10^3/uL (1.5-6.6); PLT - PLATELET COUNT 285 10^3/uL (130-450); RED BLOOD COUNT 4.32 10^6/uL (4.20-5.40); RED CELL DISTRIBUTION WIDTH 12.8 % (12.0-15.0); WHITE BLOOD COUNT 7.5 x10^3/uL (4.8-10.8)
[2020-01-10 15:58] LABS: ALBUMIN 4.3 g/dL (3.2-5.5); BILIRUBIN,TOTAL 0.4 mg/dL (0.2-1.0); CALCIUM 9.6 mg/dL (8.5-10.3); CREATININE 0.8 mg/dL (0.4-1.0); TOTAL PROTEIN 7.7 g/dL (6.7-8.2)
[2020-01-10 15:59] LABS: ALBUMIN/GLOBULIN RATIO 1.3 (1.0-2.2)
--- NOTE | 2020-01-10 16:15 | ED Physician Documentation ---
PD HPI FEMALE - Stated complaint Stated Complaint: FEMALE - Chief complaint Chief Complaint: Abd Pain - History obtained from History obtained from: Patient - Additional information Additional information: G1 now G2, P1 with LMP December 03, she had some colostrum last week and took a test and it was positive. She has had multiple positive tests. She has had some cramping ongoing but today had moderate bleeding. 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 Psych: Depression - Past Surgical History Past Surgical History: No - Present Medications Home Medications: Ambulatory Orders Medication Instructions Recorded Confirmed Ondansetron Odt [Zofran] 4 mg TL Q6H PRN #10 tablet 11/29/19 - Allergies Allergies/Adverse Reactions: Allergies Allergy/AdvReac Type Severity Reaction Status Date / Time No Known Drug Allergies Allergy Verified 01/10/20 15:19 - Social History Does the pt smoke?: No Smoking Status: Never smoker Does the pt drink ETOH?: No Does the pt have substance abuse?: No - Immunizations Immunizations are current?: Yes - POLST Patient has POLST: No PD ED PE NORMAL - Vitals Vital signs reviewed: Yes - General General: Alert and oriented X 3, Other (Anxious and tearful at times but appropriate) - HEENT HEENT: PERRL, EOMI - Neck Neck: Supple, no meningeal sign, No bony TTP - Cardiac Cardiac: RRR, No murmur - Respiratory Respiratory: No respiratory distress, Clear bilaterally - Abdomen Abdomen: Normal bowel sounds, Soft, Non tender - Back Back: No CVA TTP, No spinal TTP - Derm Derm: Normal color, Warm and dry - Extremities Extremities: No edema, No calf tenderness / cord - Neuro Neuro: Alert and oriented X 3, Normal speech Results - Vitals Vitals: Vital Signs - 24 hr 01/10/20 01/10/20 01/10/20 15:16 17:43 18:59 Temperature 37.0 C 37.0 C Heart Rate 82 80 84 Respiratory 16 22 19 Rate Blood Pressure 127/78 129/87 H 118/87 H O2 Saturation 99 100 97 Oxygen O2 Source Room air - Labs Labs: Laboratory Tests 01/10/20 01/10/20 01/10/20 15:39 15:39 15:39 WBC 7.5 RBC 4.32 Hgb 12.6 Hct 37.2 MCV 86.1 MCH 29.2 MCHC 33.9 RDW 12.8 Plt Count 285 MPV 9.7 Neut # (Auto) 3.7 Lymph # (Auto) 3.0 [place] # (Auto) 0.6 Eos # (Auto) 0.2 Baso # (Auto) 0.0 Absolute Nucleated RBC 0.00 Nucleated RBC % 0.0 Sodium 140 Potassium 3.4 L Chloride 103 Carbon Dioxide 27 Anion Gap 10.0 BUN 11 Creatinine 0.8 Estimated GFR (MDRD) 90 Glucose 110 H Calcium 9.6 Total Bilirubin 0.4 AST 16 ALT 16 Alkaline Phosphatase 41 L Total Protein 7.7 Albumin 4.3 Globulin 3.4 Albumin/Globulin Ratio 1.3 Lipase 39 HCG, Quant Blood Type A NEGATIVE 01/10/20 15:39 WBC RBC Hgb Hct MCV MCH MCHC RDW Plt Count MPV Neut # (Auto) Lymph # (Auto) [place] # (Auto) Eos # (Auto) Baso # (Auto) Absolute Nucleated RBC Nucleated RBC % Sodium Potassium Chloride Carbon Dioxide Anion Gap BUN Creatinine Estimated GFR (MDRD) Glucose Calcium Total Bilirubin AST ALT Alkaline Phosphatase Total Protein Albumin Globulin Albumin/Globulin Ratio Lipase HCG, Quant 4.79 Blood Type - Rads (name of study) OB sono Radiology: EMP read contemporaneously (No evidence of intrauterine nor ectopic , there is a right ovarian cyst) PD MEDICAL DECISION MAKING - ED course ED course: 24-year-old woman presents in early for bleeding and cramping. Her beta-hCG is only 4. Ultrasound is nondiagnostic. Discussed need for repeat ultrasound and beta-hCG in about a week. Departure - Departure Disposition: 01 Home, Self Care Clinical Impression: Threatened Condition: Good Record reviewed to determine appropriate education?: Yes Instructions: ED Miscarriage Poss Comments: At this point your beta-hCG is quite low and we are unable to identify a intrauterine . You need a repeat ultrasound and beta-hCG in a week. Return for new or worsening symptoms. Note for your records that you did receive Rh immunoglobulin today. Discharge Date/Time: 01/10/20 19:30
[2020-01-10] MEDS ORDERED: HYDROcod/ACETAM 5/325 MG TABLET PO STA (17:49)
[2020-01-10] MEDS ORDERED: RHO(D) IMMUNE GLOBULIN 300 MCG SYRINGE IM STA (18:48)
[2020-01-10] MEDS ORDERED: HYDROcod/ACET 5/325 Prepack 4 PO STA (18:52)
[2020-01-10 19:00] VITALS: BP 118/87
--- NOTE | 2020-01-10 19:12 | Ultrasound Report ---
PROCEDURE: OB First Trimester INDICATIONS: preg/vb OUTSIDE/PRIOR DATING DATA: Last menstrual period (LMP): 9.26.20. TECHNIQUE: Real-time scanning was performed of the fetus and maternal pelvic organs, with image documentation. COMPARISON: None FINDINGS: There is no evidence of intrauterine . Maternal organs: There is a complex right ovarian cyst measuring 20 mm.. Limited images through the kidneys demonstrate no hydronephrosis. IMPRESSION: 1. No evidence of intrauterine . 2. Ectopic cannot be excluded. 3. Complex right ovarian cyst measuring 20 mm. Reviewed by: Margaux Leahy MD on 01/10/2020 7:11 PM PST Approved by: Margaux Leahy MD on 01/10/2020 7:11 PM PST Station ID: [id number]
--- NOTE | 2020-01-12 12:38 | Ultrasound Report ---
PROCEDURE: OB Transvaginal INDICATIONS: preg/vb TECHNIQUE: Both transabdominal and transvaginal scanning were performed. COMPARISON: None. FINDINGS: Please refer to the dedicated report from same day, titled "OB first trimester". IMPRESSION: The transabdominal and transvaginal scanning results are combined on a single report, associated with the study from same day, "OB first trimester". Reviewed by: Gerard Baer MD on 01/12/2020 12:36 PM PST Approved by: Gerard Baer MD on 01/12/2020 12:36 PM PST Station ID: [id number]
== END 2020-01-10 19:30 | disposition home or self-care (01) ==
LOC: ED 15:06
DX: O20.0 Threatened abortion (principal); Z3A.00 Weeks of gestation of pregnancy not specified; N83.201 Unspecified ovarian cyst, right side
CPT/HCPCS: 36415; 76801; 76817; 80053; 83690; 84702; 85025; 86900; 86901; 96372; 99284; A9270